=== PATIENT | female | born 1985 | race Caucasian/White ===

== ENCOUNTER 2018-11-06 09:03 | Emergency (ER) | payer OTHER ==
[~2018-11-06] VITALS: Ht 157.5 cm; Wt 67.8 kg
[2018-11-06 09:07] VITALS: BP 119/81
--- NOTE | 2018-11-06 09:14 | NUR ---
PT AMBULATES TO BED 6
--- NOTE | 2018-11-06 09:19 | NUR ---
33 Y/O F W/C/O SORE THROAT, HEADACHE, FEVER 102 LAST NIGHT, NAUSEA/VOMITING X 3 DAYS. TOOK TYLENOL AT 0700 WITH SOME RELIEF. PT AFEBRILE AT THIS TIME. SKIN IS INTACT, PINK/WARM/DRY; AAOX4, PERRL, WITH EVEN AND STEADY GAIT; LUNGS CLEAR BL, BREATHING UNLABORED; HR EVEN AND REGULAR, BL PERIPHERAL PULSES PRESENT; BS ACTIVE X4. PT STATES 9/10 PAIN AT THIS TIME; VSS; PATIENT POSITIONED FOR COMFORT; HOB ELEVATED; BEDRAILS UP X2; BED DOWN. HX: DENIES RX: DENIES
--- NOTE | 2018-11-06 09:41 | NUR ---
LAB COLLECTED SWABS
[2018-11-06] MEDS ORDERED: CLINDAMYCIN 600 MG/4 ML VIAL IM ONE (09:50)
[2018-11-06] MEDS ORDERED: DEXAMETHASONE 10 MG/ML VIAL IM ONE (09:50)
--- NOTE | 2018-11-06 10:30 | NUR ---
PT RESTING COMFORTABLY IN BED IN RELAXED POSITION.
[2018-11-06 12:28] VITALS: BP 116/85
--- NOTE | 2018-11-06 12:29 | NUR ---
Patient discharged with v/s stable. Written and verbal after care instructions given and explained. Patient alert, oriented and verbalized understanding of instructions. Ambulatory with steady gait. All questions addressed prior to discharge. ID band removed. Patient advised to follow up with PMD. Rx of CLINDAMYCIN, PREDNISONE given. Patient educated on indication of medication including possible reaction and side effects. Opportunity to ask questions provided and answered.
== END 2018-11-06 12:29 | disposition home or self-care (01) ==
LOC: MED 09:03
DX: J03.90 Acute tonsillitis, unspecified (principal)
CPT/HCPCS: 36415; 87081; 87804; 96372; 99283; J1100; J3490

== ENCOUNTER 2019-10-12 03:02 | Emergency (ER) | payer OTHER ==
[~2019-10-12] VITALS: Ht 160 cm; Wt 71.7 kg
[2019-10-12 03:13] VITALS: BP 115/71
--- NOTE | 2019-10-12 03:20 | NUR ---
34 YEAR OLD FEMALE COMPLAINS OF 4/10 ABDOMINAL PAIN THAT RADIATES TO THE BACK. PATIENT STATES THAT SHE FEELS A LITTLE NAUSEA AT THIS TIME, NO VOMITTING. UPPER ABDOMEN PAIN ON PALPATION, SOFT, BOWEL SOUNDS ACTIVE X4. PATIENT AOX4, BREATHING EVEN AND UNLABORED, SKIN WARM AND DRY. BED IN LOWEST POSITION, LOCKED, BED RAIL UPX1. PMH - DENIES MEDS - DENIES ALLERGIES - NKA
[2019-10-12] MEDS ORDERED: MORPHINE SULFATE 4 MG/ML SYR IVP ONE (03:25)
[2019-10-12] MEDS ORDERED: ONDANSETRON 4 MG/2 ML VIAL IVP ONE (03:25)
--- NOTE | 2019-10-12 03:25 | NUR ---
Dr. Baron examining patient.
[2019-10-12 03:45] LABS: BASOPHILS # (AUTO) 0.1 K/uL (0.00-0.22); BASOPHILS % (AUTO) 0.8 % (0.0-2.0); EOSINOPHILS # (AUTO) 0.3 K/uL (0-0.4); EOSINOPHILS % (AUTO) 2.2 % (0.0-4.0); HEMATOCRIT 41.5 % (36-48); LYMPHOCYTES # (AUTO) 4.1 K/uL (2.5-16.5); MEAN CORPUSCULAR HEMOGLOBIN 30 pg (27-31); MEAN CORPUSCULAR HGB CONC 34 g/dL (33-37); MEAN CORPUSCULAR VOLUME 90.1 fL (80-94); MONOCYTES # (AUTO) 0.9 K/uL (0.8-1.0); MONOCYTES % (AUTO) 5.9 % (1.7-9.3); NEUTROPHILS # (AUTO) 10.1 K/uL (1.8-7.7); NEUTROPHILS % (AUTO) 65.1 % (42.2-75.2); PLATELET COUNT (AUTO) 277 K/uL (140-450); RED CELL DISTRIBUTION WIDTH 12.2 % (11.6-13.7); WHITE BLOOD COUNT (AUTO) 15.6 K/uL (4.8-10.8)
[2019-10-12 03:54] LABS: ANION GAP 12.5 (8-16); CARBON DIOXIDE 25.8 mmol/L (21-32); CREATININE 0.8 mg/dL (0.6-1.3); POTASSIUM 3.3 mmol/L (3.5-5.1)
[2019-10-12 04:00] LABS: ALBUMIN 3.4 g/dL (3.4-5.0); TOTAL BILIRUBIN 0.5 mg/dL (0.0-1.0)
--- NOTE | 2019-10-12 04:46 | NUR ---
Ultrasound at bedside.
--- NOTE | 2019-10-12 05:30 | NUR ---
Marissa sigala in [facility] - 10/12/[address] at [address] WALDROP REMINDED THAT PATIENT STILL HAS PAIN FROM HEADACHE
[2019-10-12 05:40] LABS: APPEARANCE,URINE CLEAR (CLEAR); BILIRUBIN,URINE NEGATIVE (NEGATIVE); BLOOD, URINE TRACE-I (NEGATIVE); COLOR,URINE YELLOW (YELLOW); LEUKOCYTE ESTERASE ,URINE TRACE (NEGATIVE); NITRITE, URINE NEGATIVE (NEGATIVE); UGLUCOSE NEGATIVE (NEGATIVE)
[2019-10-12 05:52] LABS: RBC,URINE 0-5 /HPF (0-5); WBC,URINE 0-5 /HPF (0-5)
--- NOTE | 2019-10-12 06:29 | NUR ---
Marissa sigala in [facility] - 10/12/19 at 0630 by MEDJJ PATIENT DENIED TORADOL BECAUSE IT MAKES HIM "NOT FEEL GOOD" DR WALDROP MADE AWARE
[2019-10-12 07:16] VITALS: BP 115/71
--- NOTE | 2019-10-12 07:17 | NUR ---
Patient discharged with v/s stable. Written and verbal after care instructions given and explained. Patient verbalized understanding. Ambulatory with steady gait. Patient awaiting ride in [place], informed that they can not drive themselfs home. States she called he to pick her up. All questions addressed prior to discharge. Advised to follow up with PMD.
== END 2019-10-12 07:17 | disposition home or self-care (01) ==
LOC: MED 03:02
DX: R10.13 Epigastric pain (principal); R10.11 Right upper quadrant pain; D72.829 Elevated white blood cell count, unspecified; E87.6 Hypokalemia
CPT/HCPCS: 36415; 74176; 76705; 80053; 81001; 81025; 83690; 85025; 87804; 96374; 96375; 99284; J2270; J2405; Q0092

== ENCOUNTER 2019-10-16 02:18 | Emergency (ER) | payer OTHER ==
[~2019-10-16] VITALS: Ht 157.5 cm; Wt 70.3 kg
[2019-10-16 02:30] VITALS: BP 116/77
--- NOTE | 2019-10-16 02:30 | NUR ---
to bed # 03 ambulatory
--- NOTE | 2019-10-16 02:41 | NUR ---
34 Y/O FEMALE PRESENTS TO ED, C/O RIGHT ABDOMINAL PAIN 12/24. PT STATES PAIN RADIATES TO FLANK. C/O NAUSEA AND VOMITING X2, DIARRHEA X2. BS ACTIVE X4 QUADRANTS. ABDOMEN SOFT AND NONTENDER. PT DENIES TAKING ANY MEDICATIONS PRIOR COMING TO ED. PT DENIES PAIN URINATING. NO SOB/DIFFICULTY BREATHING NOTED. DENIES CHEST PAIN. PT VSS. ERMD AWARE. WILL CONTINUE TO MONITOR.
--- NOTE | 2019-10-16 02:43 | NUR ---
PT UNABLE TO PROVIDE URINE AT THIS TIME
--- NOTE | 2019-10-16 02:54 | NUR ---
Dr. Breen examining patient.
[2019-10-16] MEDS ORDERED: ONDANSETRON 4 MG ODT PO ONE (03:05)
[2019-10-16] MEDS ORDERED: MORPHINE SULFATE 4 MG/ML SYR IM ONE (03:05)
--- NOTE | 2019-10-16 03:05 | NUR ---
URINE COLLECTED AND SENT TO LAB AT THIS TIME
[2019-10-16 03:23] LABS: BASOPHILS # (AUTO) 0.2 K/uL (0.00-0.22); BASOPHILS % (AUTO) 1.3 % (0.0-2.0); EOSINOPHILS # (AUTO) 0.3 K/uL (0-0.4); EOSINOPHILS % (AUTO) 2.2 % (0.0-4.0); HEMATOCRIT 40.5 % (36-48); HEMOGLOBIN 13.4 g/dL (12.0-16.0); LYMPHOCYTES # (AUTO) 2.5 K/uL (2.5-16.5); LYMPHOCYTES % (AUTO) 21.7 % (20.5-51.1); MEAN CORPUSCULAR HEMOGLOBIN 30 pg (27-31); MEAN CORPUSCULAR HGB CONC 33 g/dL (33-37); MEAN CORPUSCULAR VOLUME 90.7 fL (80-94); MONOCYTES # (AUTO) 0.6 K/uL (0.8-1.0); MONOCYTES % (AUTO) 5.4 % (1.7-9.3); NEUTROPHILS # (AUTO) 7.9 K/uL (1.8-7.7); NEUTROPHILS % (AUTO) 69.4 % (42.2-75.2); PLATELET COUNT (AUTO) 270 K/uL (140-450); RED BLOOD CELL COUNT(AUTO) 4.47 MIL/uL (4.20-5.40); RED CELL DISTRIBUTION WIDTH 12.3 % (11.6-13.7); WHITE BLOOD COUNT (AUTO) 11.4 K/uL (4.8-10.8)
[2019-10-16 03:31] LABS: APPEARANCE,URINE CLEAR (CLEAR); BILIRUBIN,URINE NEGATIVE (NEGATIVE); BLOOD, URINE 3+ (NEGATIVE); COLOR,URINE YELLOW (YELLOW); LEUKOCYTE ESTERASE ,URINE NEGATIVE (NEGATIVE); NITRITE, URINE NEGATIVE (NEGATIVE); PH,URINE 5.5 (5.0-9.0); UGLUCOSE NEGATIVE (NEGATIVE)
[2019-10-16 03:51] LABS: ANION GAP 15.2 (8-16); CARBON DIOXIDE 25.3 mmol/L (21-32); CREATININE 0.7 mg/dL (0.6-1.3); POTASSIUM 3.5 mmol/L (3.5-5.1); TOTAL BILIRUBIN 0.5 mg/dL (0.0-1.0)
[2019-10-16 03:52] LABS: ALBUMIN 3.3 g/dL (3.4-5.0)
[2019-10-16 03:55] LABS: RBC,URINE 20-50 /HPF (0-5)
[2019-10-16 04:33] VITALS: BP 116/73
--- NOTE | 2019-10-16 04:33 | NUR ---
PT DISCHARGED WITH PAPERWORK. EDUCATED PT REGARDING MEDICATIONS AND D/C INSTRUCTIONS. PT VERBALIZED UNDERSTANDING OF TEACHING. TOLD PT TO FOLLOW UP WITH PCP AND WHEN TO RETURN TO ED. PT STABLE CONDITION. ALL QUESTIONS ANSWERED.
== END 2019-10-16 04:33 | disposition home or self-care (01) ==
LOC: MED 02:18
DX: R10.10 Upper abdominal pain, unspecified (principal); Z98.890 Other specified postprocedural states
CPT/HCPCS: 36415; 80053; 81001; 81025; 83690; 85025; 86140; 87086; 87186; 96372; 99283; J2270; Q0162; 81002